=== PATIENT | female | born 1940 | race Caucasian/White ===

== ENCOUNTER → 2016-04-25 | Outpatient (CLI) | payer MEDICARE, BC ==
[~2016-04-25] MED LIST: ASPIRIN 32325 MG/TA1 PO; BACTRIM DS 8001 TAB PO; CALCIUM 600/VIT1 CAP PO; FERROUS SULFATE65 MG PO; FISH OIL 1000MG1 CAP PO; FOLIC ACID0.4 MG PO; HCTZ12.5TAB PO; MERIBIN5 MG PO; MULTI VITAMINS1 TAB PO; NAPROSYN 2250 MG/TAB PO; NATURE'S BLE1000 MCG PO; OSTEO-BI-FLEX 21 TAB PO; PYRIDIUM200 M1 PO; ULTRAM 50MG TAB50 MG PO; VITAMIN D1000 IU PO; [UNRECOGNIZED DRUG - OTHER] PO
== END ==
LOC: MC.RAD 12:59
DX: Z12.31 Encounter for screening mammogram for malignant neoplasm of breast (principal)

== ENCOUNTER 2016-06-04 13:07 | Emergency (ER) | payer MEDICARE, BC ==
[~2016-06-04] VITALS: Ht 149.9 cm; Wt 57.3 kg
[~2016-06-04 13:07] MED LIST changes: -NATURE'S BLE1000 MCG PO; -VITAMIN D1000 IU PO; -[UNRECOGNIZED DRUG - OTHER] PO
[2016-06-04 13:11] VITALS: BP 176/94; TEMP 97.9
[2016-06-04] MEDS ORDERED: VITAMIN D1000 IU PO (13:17)
[2016-06-04] MEDS ORDERED: NATURE'S BLE1000 MCG PO (13:17)
[2016-06-04] MEDS ORDERED: [UNRECOGNIZED DRUG - OTHER] PO (13:17)
[2016-06-04 14:24] LABS: BASO # 0.1 (0.0-0.2); BASO % 0.8 % (0.0-2.0); EOS # 0.3 (0.0-0.7); EOS % 3.9 % (0-4.0); GRAN # 5.4 (1.4-6.5); GRAN % 72.8 % (42.2-75.2); HEMATOCRIT 42.7 % (37.0-47.0); HEMOGLOBIN 14.1 g/dl (12.5-16.0); LYMPH # 1.2 (1.2-3.4); LYMPH % 16.4 % (20.0-51.0); MEAN CELL VOLUME 88 fl (80.0-100.0); MEAN CORPUSCULAR HEMOGLOBIN 29 pg (27.0-31.0); MEAN CORPUSCULAR HGB CONC 33 g/dl (33.0-37.0); MEAN PLATELET VOLUME 10.8 fl (7.4-10.4); MONO # 0.4 (0.1-0.6); MONO % 5.7 % (1.7-9.3); PLATELET COUNT 217 K/mm3 (130-400); RED BLOOD COUNT 4.88 M/mm3 (4.10-5.30); REDCELL DISTRIBUTION WIDTH-CV 13.2 % (11.5-14.5); WHITE BLOOD COUNT 7.4 K/mm3 (4.8-10.8)
[2016-06-04 14:36] LABS: ADJUSTED CALCIUM 9.2 mg/dL (8.4-10.2); ALANINE AMINOTRANSFERASE 28 U/L (9-52); ALBUMIN 4.4 gm/dL (3.5-5.0); ALKALINE PHOSPHATASE 103 U/L (50-136); ANION GAP 12 mmol/L (7-16); BILIRUBIN,TOTAL 0.6 mg/dL (0.0-1.0); BLOOD UREA NITROGEN 18 mg/dL (7-17); CALCIUM 9.5 mg/dL (8.4-10.2); CARBON DIOXIDE 28 mmol/L (22-30); CHLORIDE 102 mmol/L (98-107); GLUCOSE 94 mg/dL (74-106); POTASSIUM 3.8 mmol/L (3.4-5.0); SODIUM 141 mmol/L (137-145)
[2016-06-04 14:50] LABS: TROPONIN-I < 0.012 ng/mL (0.000-0.034)
[2016-06-04 16:44] VITALS: PULSE 65
== END 2016-06-04 16:43 | disposition home or self-care (01) ==
LOC: COL.ER 13:07
PROVIDERS: Emergency Medicine
DX: H53.8 Other visual disturbances (principal); R20.0 Anesthesia of skin; I48.0 Paroxysmal atrial fibrillation; I10 Essential (primary) hypertension; Z79.82 Long term (current) use of aspirin

== ENCOUNTER → 2016-06-19 | Outpatient (CLI) | payer MEDICARE, BC ==
[~2016-06-19] MED LIST changes: +NATURE'S BLE1000 MCG PO; +VITAMIN D1000 IU PO; +[UNRECOGNIZED DRUG - OTHER] PO
[2016-06-19 11:02] LABS: MAGNESIUM 2.3 mg/dL (1.6-2.3)
[2016-06-20 11:41] LABS: ALBUMIN FRACTION 4.1 g/dL (2.6-4.5); ALBUMIN PERCENTAGE 64.5 % (48.7-61.8); ALPHA 1 FRACTION 0.3 g/dL (0.3-0.5); ALPHA 2 FRACTION 0.7 g/dL (0.6-1.2); BETA 1 FRACTION 0.4 g/dL (0.4-0.6); BETA 1 PERCENTAGE 6.2 % (5.4-8.9); BETA 2 FRACTION 0.3 g/dL (0.2-0.5); GAMMA FRACTION 0.6 g/dL (0.4-1.7); GAMMA PERCENTAGE 9.3 % (8.1-23.0); SERUM PROTEIN TOTAL 6.3 g/dL (6.0-7.6)
== END ==
LOC: COL.LAB 08:26
PROVIDERS: Psychiatry & Neurology Neurology
DX: G62.9 Polyneuropathy, unspecified (principal)

== ENCOUNTER → 2016-06-21 | Outpatient (CLI) | payer MEDICARE, BC | LOC: COL.VAS 10:00 | DX: G45.9 Transient cerebral ischemic attack, unspecified (principal) ==

== ENCOUNTER → 2016-06-22 | Outpatient (CLI) | payer MEDICARE, BC | LOC: COL.LAB 07:49 | DX: G62.89 Other specified polyneuropathies (principal); E53.9 Vitamin B deficiency, unspecified; Z13.1 Encounter for screening for diabetes mellitus ==

== ENCOUNTER → 2017-05-17 | Outpatient (CLI) | payer MEDICARE, BC | LOC: MC.RAD 08:57 | DX: Z12.31 Encounter for screening mammogram for malignant neoplasm of breast (principal); Z98.890 Other specified postprocedural states ==

== ENCOUNTER 2017-12-03 09:45 | Day surgery (SDC) | payer MEDICARE, BC ==
[2017-12-03] VITALS (253 sets, daily range): BP systolic 118–136; BP diastolic 58–77; PULSE 50–68; TEMP 97.7–98.1; O2SAT 83–100
[~2017-12-03] VITALS: Ht 149.9 cm; Wt 54.6 kg
[2017-12-03] MEDS ORDERED: PLAVIX 75MG TAB75 MG PO (10:14)
[2017-12-03] MEDS ORDERED: NORVASC 5MG5 MG/TAB PO (10:14)
[2017-12-03] MEDS ORDERED: ASPIRIN E.C. 8181 MG PO (10:14)
[2017-12-03] MEDS ORDERED: FISH OIL 500 M1 EAC1 PO (10:15)
[2017-12-03] MEDS ORDERED: LOPRESSOR 225 MG/TAB PO (10:15)
[2017-12-03] MEDS ORDERED: PRESERVISIONLUT PO (10:16)
[2017-12-03 10:35] LABS: HEMATOCRIT 39.9 % (37.0-47.0); HEMOGLOBIN 12.9 g/dl (12.5-16.0); MEAN CELL VOLUME 89 fl (80.0-100.0); MEAN CORPUSCULAR HEMOGLOBIN 29 pg (27.0-31.0); MEAN CORPUSCULAR HGB CONC 32 g/dl (33.0-37.0); MEAN PLATELET VOLUME 10.1 fl (7.4-10.4); PLATELET COUNT 172 K/mm3 (130-400); RED BLOOD COUNT 4.51 M/mm3 (4.10-5.30); REDCELL DISTRIBUTION WIDTH-CV 13.2 % (11.5-14.5)
[2017-12-03 10:42] LABS: PROTHROMBIN TIME 11.9 SECONDS (9.7-12.8)
[2017-12-03 10:47] LABS: CALCIUM 9.2 mg/dL (8.4-10.2); CREATININE, serum 0.83 mg/dL (0.52-1.25); POTASSIUM 4.5 mmol/L (3.4-5.0)
[2017-12-04] VITALS (345 sets, daily range): BP systolic 122–132; BP diastolic 66–93; PULSE 53–58; TEMP 97.9–98.7; O2SAT 81–100
[2017-12-04 05:32] LABS: BASO # 0.1 (0.0-0.2); BASO % 0.6 % (0.0-2.0); GRAN # 6.5 (1.4-6.5); GRAN % 82.7 % (42.2-75.2); HEMOGLOBIN 11.5 g/dl (12.5-16.0); LYMPH # 0.9 (1.2-3.4); MEAN CELL VOLUME 89 fl (80.0-100.0); MEAN CORPUSCULAR HEMOGLOBIN 29 pg (27.0-31.0); MEAN CORPUSCULAR HGB CONC 33 g/dl (33.0-37.0); MEAN PLATELET VOLUME 10.5 fl (7.4-10.4); MONO # 0.4 (0.1-0.6); MONO % 5.4 % (1.7-9.3); PLATELET COUNT 169 K/mm3 (130-400); RED BLOOD COUNT 3.97 M/mm3 (4.10-5.30); REDCELL DISTRIBUTION WIDTH-CV 13.2 % (11.5-14.5)
[2017-12-04 05:37] LABS: HEMATOCRIT 35.2 % (37.0-47.0)
[2017-12-04 05:51] LABS: CALCIUM 8.4 mg/dL (8.4-10.2); CREATININE, serum 0.67 mg/dL (0.52-1.25); POTASSIUM 4.4 mmol/L (3.4-5.0)
[2017-12-04] MEDS ORDERED: LIPITOR 80MG80 MG PO (09:12)
== END 2017-12-04 10:45 | disposition home or self-care (01) ==
LOC: COL.CAR 09:45 → ICU 12:05 → COL.CAR 12-04 10:45
PROVIDERS: Internal Medicine Cardiovascular Disease; Nurse Practitioner
DX: I25.10 Atherosclerotic heart disease of native coronary artery without angina pectoris (principal); I05.9 Rheumatic mitral valve disease, unspecified; I10 Essential (primary) hypertension; E78.5 Hyperlipidemia, unspecified; D64.9 Anemia, unspecified; I49.3 Ventricular premature depolarization; R00.2 Palpitations; Z77.22 Contact with and (suspected) exposure to environmental tobacco smoke (acute) (chronic); Z79.82 Long term (current) use of aspirin; Z87.891 Personal history of nicotine dependence
CPT/HCPCS: OP; C1725; C1760; C1769; C1874; C1887; C1894; C9600; J0583; J1644; J2250; J3010; Q9967

== ENCOUNTER → 2017-12-09 | Outpatient (CLI) | payer MEDICARE, BC ==
[~2017-12-09] MED LIST changes: +ASPIRIN E.C. 8181 MG PO; +FISH OIL 500 M1 EAC1 PO; +LIPITOR 80MG80 MG PO; +LOPRESSOR 225 MG/TAB PO; +NORVASC 5MG5 MG/TAB PO; +PLAVIX 75MG TAB75 MG PO; +PRESERVISIONLUT PO
== END ==
LOC: COL.RAD 15:00 → COL.VAS 15:00
DX: S30.1XXA Contusion of abdominal wall, initial encounter (principal); Z98.890 Other specified postprocedural states

== ENCOUNTER 2018-03-19 13:33 | Outpatient (RCR) | payer MEDICARE, BC | END 2018-03-20 | disposition home or self-care (01) | LOC: COL.CR | DX: Z48.812 Encounter for surgical aftercare following surgery on the circulatory system (principal); Z95.5 Presence of coronary angioplasty implant and graft ==

== ENCOUNTER 2018-03-28 14:45 | Outpatient (RCR) | payer MEDICARE, BC | END 2018-04-02 05:46 | disposition home or self-care (01) | LOC: COL.CR 14:45 | DX: Z48.812 Encounter for surgical aftercare following surgery on the circulatory system (principal); Z95.5 Presence of coronary angioplasty implant and graft ==

== ENCOUNTER → 2018-05-20 | Outpatient (CLI) | payer MEDICARE, BC | LOC: MC.RAD 09:43 | DX: Z12.31 Encounter for screening mammogram for malignant neoplasm of breast (principal) ==

== ENCOUNTER 2019-04-20 23:15 | Emergency (ER) | payer MEDICARE, BC ==
[~2019-04-20] VITALS: Ht 149.9 cm; Wt 58.2 kg
[2019-04-20 23:31] LABS: BASO # 0.1 (0.0-0.2); BASO % 0.6 % (0.0-2.0); EOS # 0.3 (0.0-0.7); EOS % 3.9 % (0-4.0); GRAN # 4.9 (1.4-6.5); GRAN % 61.4 % (42.2-75.2); HEMATOCRIT 43.8 % (37.0-47.0); HEMOGLOBIN 14.1 g/dl (12.5-16.0); LYMPH # 2.2 (1.2-3.4); LYMPH % 27.6 % (20.0-51.0); MEAN CELL VOLUME 90 fl (80.0-100.0); MEAN CORPUSCULAR HEMOGLOBIN 29 pg (27.0-31.0); MEAN CORPUSCULAR HGB CONC 32 g/dl (33.0-37.0); MEAN PLATELET VOLUME 10.7 fl (7.4-10.4); MONO # 0.5 (0.1-0.6); MONO % 6.4 % (1.7-9.3); PLATELET COUNT 202 K/mm3 (130-400); RED BLOOD COUNT 4.88 M/mm3 (4.10-5.30); REDCELL DISTRIBUTION WIDTH-CV 13.3 % (11.5-14.5)
[2019-04-20 23:37] LABS: PROTHROMBIN TIME 11.5 SECONDS (9.7-12.8)
[2019-04-20 23:42] LABS: ALANINE AMINOTRANSFERASE 30 U/L (9-52); ALBUMIN 4.7 gm/dL (3.5-5.0); ALKALINE PHOSPHATASE 108 U/L (50-136); ANION GAP 10 mmol/L (7-16); AST,SGOT 34 U/L (15-37); BILIRUBIN,TOTAL 0.4 mg/dL (0.0-1.0); BLOOD UREA NITROGEN 22 mg/dL (7-17); CALCIUM 9.5 mg/dL (8.4-10.2); CARBON DIOXIDE 26 mmol/L (22-30); CHLORIDE 106 mmol/L (98-107); CREATININE, serum 1.04 (0.52-1.25); GLUCOSE 100 mg/dL (74-106); POTASSIUM 3.6 mmol/L (3.4-5.0); SODIUM 142 mmol/L (137-145); TOTAL PROTEIN 7.3 gm/dL (6.4-8.2)
[2019-04-20 23:54] LABS: TROPONIN-I < 0.012 ng/mL (0.000-0.035)
[2019-04-21 04:00] VITALS: BP 115/68; PULSE 74; TEMP 98.3
== END 2019-04-21 04:00 | disposition home or self-care (01) ==
LOC: COL.ER 23:15
PROVIDERS: Emergency Medicine
DX: R07.89 Other chest pain (principal); E78.5 Hyperlipidemia, unspecified; I10 Essential (primary) hypertension; I48.91 Unspecified atrial fibrillation; Z87.891 Personal history of nicotine dependence; Z79.82 Long term (current) use of aspirin; Z79.02 Long term (current) use of antithrombotics/antiplatelets

== ENCOUNTER → 2019-07-21 | Outpatient (CLI) | payer MEDICARE, BC | LOC: MC.RAD 13:30 | DX: Z12.31 Encounter for screening mammogram for malignant neoplasm of breast (principal) ==

== ENCOUNTER → 2020-07-26 | Outpatient (CLI) | payer MEDICARE, BC | LOC: MC.RAD 10:00 | DX: Z12.31 Encounter for screening mammogram for malignant neoplasm of breast (principal) ==

== ENCOUNTER → 2023-08-05 | Outpatient (CLI) | payer MEDICARE, BC | LOC: MC.RAD 10:00 | DX: Z12.31 Encounter for screening mammogram for malignant neoplasm of breast (principal) ==